=== PATIENT | female | born 1980 | race Caucasian/White ===

== ENCOUNTER 2016-09-20 22:01 | Emergency (ER) | payer OTHER ==
[~2016-09-20] VITALS: Ht 154.9 cm; Wt 68.0 kg
[~2016-09-20 22:01] MED LIST: ADVIL PM 38 MG-1 TAB PO; ALPRAZOLAM0.5 MG PO; ASACOL HD800 MG PO; BACTRIM DS 8001 TAB PO; DICYCLOMINE HCL10 MG PO; DILAUDID2 MG PO; LIALDA1.2 GM PO; METHADONE HC10 MG/ML PO; PHENERGAN25 M1 PO; PHENERGAN25 MG PR; ROWASA4 GM/60 ML RC; TYLENOL PM 5001 CAP PO; UCERIS9 MG PO; XANAX1 MG PO
--- NOTE | 2016-09-20 22:59 | ED GI/GU/ABDOMINAL COMPLAINT ---
History of Present Illness General Chief Complaint: Abdominal Pain/Flank Pain Stated Complaint: RIGHT SIDE PAIN, VOMITING PER PT Source: patient Exam Limitations: no limitations Vital Signs & Intake/Output Vital Signs & Intake/Output Vital Signs Date Time Temp Pulse Resp B/P Pulse O2 O2 Flow FiO2 Ox Delivery Rate 09/21 0416 44 18 125/75 98 Room Air 09/20 2358 97.9 64 20 126/73 99 Room Air 09/20 2207 98.1 92 18 127/86 98 Room Air ED Intake and Output 09/21 0000 09/20 1200 Intake Total Output Total Balance Patient 150 lb Weight Allergies Coded Allergies: NO KNOWN ALLERGIES (09/08/14) Triage Note: PT TO TRIAGE WITH C/O LOWER ABD AND LLQ ABD PAIN 4/10 UP TO 10/10 ON/OFF, NAUSEA, VOMITING WITH DARK RED BLOOD, DIARRHEA WITH SMALL AMOUNT OF BRIGHT RED BLOOD x4DAYS. HX OF CROHN'S DISEASE, COLITIS. Triage Nurses Notes Reviewed? yes ? n Is pt currently ? No Onset: Abrupt Duration: day(s):, constant, continues in ED Timing: recent history Quality/Severity: moderate, sharpness, severe Location: generalized abdomen Radiation: no radiation Prior Abdominal Problems: none No Modifying Factors: none HPI: 36-year-old female comes into emergency room for further evaluation of abdominal pain has been going on for the past 5 days. Pain is sharp. Patient has had associated vomiting and some bloody stool and loose stool. History of Crohn disease. Some dark red blood when she vomits she reports. Patient is not currently on any medications for her Crohn's disease. Patient has seen Dr. Gomez in the past. Patient has had no symptoms for the past year. Patient reports that she feels like her abdomen is bloated. (LETICIA MOULTON,FLORENCIA) Reconcile Medications Alprazolam 0.25 MG TABLET 1 TAB PO TID PRN ANXIETY (Reported) Budesonide (Uceris) 9 MG TABDR...ER 1 TAB PO DAILY COLON (Reported) Dicyclomine Hydrochloride (Dicyclomine HCl) 10 MG CAP 1 CAP PO TID PRN ABD CRAMPS (Reported) Mesalamine (Lialda) 1.2 GRAM TABLET.DR 1 TAB PO BID GI (Reported) Methadone Hydrochloride (Methadone HCl) 10 MG/ML RAMON 115 MG PO DAILY PAIN ( Reported) Oxycodone HCl/Acetaminophen (Percocet 5-325 MG Tablet) 5 MG-325 MG TABLET 1 TAB PO BID PRN PAIN Sulfamethoxazole/Trimethopri (Bactrim Ds 800 MG-160 MG) 1 TAB TAB 1 TAB PO BID UTI (AUBRIE ALEGRIA DO) Past History Travel History Traveled to [place] past 21 day No Medical History Any Pertinent Medical History? 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 No (FLORENCIA KASPER) Review of Systems Review of Systems Constitutional: Reports: no symptoms. EENTM: Reports: no symptoms. Respiratory: Reports: no symptoms. Cardiovascular: Reports: no symptoms. GI: Reports: see HPI. Genitourinary: Reports: no symptoms. Musculoskeletal: Reports: no symptoms. Skin: Reports: no symptoms. Neurological/Psychological: Reports: no symptoms. Hematologic/Endocrine: Reports: no symptoms. Immunologic/Allergic: Reports: no symptoms. All Other Systems: Reviewed and Negative (FLORENCIA KASPER) Physical Exam Physical Exam General Appearance: well developed/nourished, alert, awake, mild distress Head: atraumatic, normal appearance Eyes: Bilateral: normal appearance. Ears, Nose, Throat, Mouth: hearing grossly normal, moist mucous membrane Neck: normal inspection, full range of motion Respiratory: normal breath sounds, no respiratory distress Cardiovascular: regular rate/rhythm Gastrointestinal: soft, distention, tenderness Rectal: heme positive stool, NO GROSS BLOOD Back: normal inspection Extremities: normal range of motion Neurologic/Psych: awake, alert, oriented x 3, normal gait, normal mood/affect Skin: intact, normal color Core Measures ACS in differential dx? No Severe Sepsis Present: No Septic Shock Present: No (FLORENCIA KASPER) Progress Differential Diagnosis: appendicitis, biliary colic, bowel obstruction, cholecystitis, diverticulitis, ectopic , gastritis, hepatitis, hernia, ischemic bowel, inflamm bowel dis, ovarian cyst, ovarian torsion, pancreatitis, PID/cervicitis, peptic ulcer, PUD/GERD, perforated viscous, SBO, threatened AB, UTI/pyelo Plan of Care: Orders Procedure Date/time Status URINE 09/20 2258 Complete URINALYSIS 09/20 2258 Complete LIPASE 09/20 2258 Complete COMPREHENSIVE METABOLIC PANEL 09/20 2258 Complete CBC WITHOUT DIFFERENTIAL 09/20 2258 Complete AMYLASE 09/20 2258 Complete Laboratory Tests 09/21/16 0031: Urinalysis LIGHT H, Urine Color YEL, Urine Clarity HAZY H, Urine pH 6.0, Ur Specific Reading 1.020, Urine Protein NEG, Urine Ketones 15 H, Urine Nitrite NEG, Urine Bilirubin NEG, Urine Urobilinogen 0.2, Ur Leukocyte Esterase SMALL H , Ur Microscopic SEDIMENT EXAMINED, Urine RBC 5-10 H, Urine WBC 3-5 H, Ur Epithelial Cells FEW, Urine Bacteria FEW H, Urine Hemoglobin LARGE H, Urine Glucose NEG, Urine Test NEGATIVE 09/20/16 2300: Anion Gap 11, Estimated GFR > 60, BUN/Creatinine Ratio 18.8, Glucose 82, Calcium 9.7, Total Bilirubin 0.6, AST 22, ALT 31, Alkaline Phosphatase 67, Total Protein 7.9, Albumin 4.6, Globulin 3.3, Albumin/Globulin Ratio 1.4, Amylase 44, Lipase 24, CBC w Diff NO MAN DIFF REQ, RBC 4.52, MCV 85.8, MCH 28.8, RDW 13.4, MPV 8.6, Gran % 70.9, Lymphocytes % 23.8, Monocytes % 4.9, Eosinophils % 0.1, Basophils % 0.3, Absolute Granulocytes 6.8 H, Absolute Lymphocytes 2.3, Absolute Monocytes 0.5, Absolute Eosinophils 0, Absolute Basophils 0, PUBS MCHC 33.6 Diagnostic Imaging: Viewed by Me: CT Scan. Discussed w/RAD: CT Scan. Initial ED EKG: none Hand-Off Endorsed To: AUBRIE ALEGRIA DO ([facility]) Endorsed Time: 54 Pending: CT (FLORENCIA KASPER) Departure Departure Disposition: HOME OR SELF CARE Condition: Stable Clinical Impression Primary Impression: Abdominal pain Referrals: DEZ HERRERA,ANDREIA Nolen (PCP/Family) Departure Forms: Customer Survey General Discharge Information (FLORENCIA KASPER) Departure Prescriptions: Current Visit Scripts Oxycodone HCl/Acetaminophen (Percocet 5-325 MG Tablet) 1 TAB PO BID PRN PAIN #10 TAB Comments 09/21/16 3 AM Abdomen soft nontender. CT negative. The patient will follow up with GI on Thursday. She was told to return to the emergency department if worse. Dr Gomez was informed of the paln. CT BELOW PATIENT: DARON TAFOYA PRESENT AGE: 36 PATIENT ACCOUNT NO: [id number] : 82 LOCATION: [facility] ORDERING PHYSICIAN: FLORENCIA MOULTON SERVICE DATE: 09/20/16 EXAM TYPE: CAT - CT ABD & PELVIS W IV CONTRAST EXAMINATION: CT ABDOMEN AND PELVIS WITH CONTRAST CLINICAL INFORMATION: History of Crohn's disease. Abdominal distention and abdominal pain COMPARISON: CT scan abdomen pelvis 09/08/2014 TECHNIQUE: Multidetector volumetric imaging was performed of the abdomen and pelvis before and after the IV administration of 94 mL of Optiray 320 intravenous contrast. Sagittal and coronal reformatted images were obtained on the technologist's workstation. DLP: 497.91 mGy-cm FINDINGS: LUNG BASES: The visualized lung bases are unremarkable. LIVER, GALLBLADDER, AND BILIARY TREE: The liver is normal in size, shape, and attenuation. No focal hepatic lesion or biliary ductal dilatation is present. The gallbladder is unremarkable with no evidence of radiopaque gallstones, gallbladder wall thickening, or obvious pericholecystic inflammatory changes. PANCREAS: Unremarkable. SPLEEN: Unremarkable. ADRENAL GLANDS: Unremarkable. KIDNEYS AND URETERS: 5 mm nonobstructive stone in the lower pole of the left kidney. No stone in right kidney. No ureteral stone. No hydronephrosis. BLADDER: Unremarkable. GASTROINTESTINAL TRACT: The mid sigmoid bowel loop had bowel wall thickened thickening and subtle pericolonic edema on the CAT scan of 09/08/2014. No specific abnormality of this bowel loop on current study. There is no focal area of bowel wall edema or pericolonic edema. The small bowel loops are normal including the terminal ileum. No bowel obstruction. The appendix is normal. ABDOMINAL WALL: No significant hernia is appreciated. LYMPH NODES: Normal. VASCULAR: Unremarkable. PELVIC VISCERA: Uterus is retroverted. No adnexal abnormality. OSSEOUS STRUCTURES: Unremarkable. IMPRESSION: No acute abnormality CT scan abdomen pelvis. No acute change of the bowel. DICTATED BY: HOLLY AGUIRRE MD DATE/TIME DICTATED:09/21/16203 BLAST HOLE DRILLER:TEOFILO DATE/TIME TRANSCRIBED:09/21/16203 CONFIDENTIAL, DO NOT COPY WITHOUT APPROPRIATE AUTHORIZATION. <Electronically signed in Other Vendor System> SIGNED BY: HOLLY AGUIRRE MD 09/21/16216 (AUBRIE ALEGRIA DO
[2016-09-20 23:56] LABS: ABSOLUTE BASOPHIL COUNT 0 /CUMM (0.0-0.2); ABSOLUTE EOSINOPHIL COUNT 0 /CUMM (0.0-0.7); ABSOLUTE GRANULOCYTE CT 6.8 /CUMM (1.4-6.5); ABSOLUTE LYMPH COUNT 2.3 /CUMM (1.2-3.4); ABSOLUTE MONOCYTE COUNT 0.5 /CUMM (0.10-0.60); BASOPHIL % 0.3 % (0.0-2.0); EOSINOPHIL % 0.1 % (0-5); HEMATOCRIT 38.8 % (37-47); MEAN CORPUSCULAR HGB 28.8 PG (27.0-31.0); MEAN CORPUSCULAR HGB CONC 33.6 G/DL (33.0-37.0); MEAN CORPUSCULAR VOLUME 85.8 FL (81.0-99.0); MEAN PLATELET VOLUME 8.6 FL (7.4-10.4); PLATELET COUNT 377 /CUMM (130-400); RBC DISTRIBUTION WIDTH 13.4 % (11.5-14.5); RED BLOOD CELL CT 4.52 /CUMM (4.20-5.40); WHITE BLOOD CELL COUNT 9.5 /CUMM (4.8-10.8)
[2016-09-20 23:57] LABS: GRANULOCYTE % 70.9 % (42.2-75.2)
--- NOTE | 2016-09-21 02:17 | CT SCAN REPORT ---
EXAMINATION: CT ABDOMEN AND PELVIS WITH CONTRAST CLINICAL INFORMATION: History of Crohn's disease. Abdominal distention and abdominal pain COMPARISON: CT scan abdomen pelvis 09/08/2014 TECHNIQUE: Multidetector volumetric imaging was performed of the abdomen and pelvis before and after the IV administration of 94 mL of Optiray 320 intravenous contrast. Sagittal and coronal reformatted images were obtained on the technologist's workstation. DLP: 497.91 mGy-cm FINDINGS: LUNG BASES: The visualized lung bases are unremarkable. LIVER, GALLBLADDER, AND BILIARY TREE: The liver is normal in size, shape, and attenuation. No focal hepatic lesion or biliary ductal dilatation is present. The gallbladder is unremarkable with no evidence of radiopaque gallstones, gallbladder wall thickening, or obvious pericholecystic inflammatory changes. PANCREAS: Unremarkable. SPLEEN: Unremarkable. ADRENAL GLANDS: Unremarkable. KIDNEYS AND URETERS: 5 mm nonobstructive stone in the lower pole of the left kidney. No stone in right kidney. No ureteral stone. No hydronephrosis. BLADDER: Unremarkable. GASTROINTESTINAL TRACT: The mid sigmoid bowel loop had bowel wall thickened thickening and subtle pericolonic edema on the CAT scan of 09/08/2014. No specific abnormality of this bowel loop on current study. There is no focal area of bowel wall edema or pericolonic edema. The small bowel loops are normal including the terminal ileum. No bowel obstruction. The appendix is normal. ABDOMINAL WALL: No significant hernia is appreciated. LYMPH NODES: Normal. VASCULAR: Unremarkable. PELVIC VISCERA: Uterus is retroverted. No adnexal abnormality. OSSEOUS STRUCTURES: Unremarkable. IMPRESSION: No acute abnormality CT scan abdomen pelvis. No acute change of the bowel.
[2016-09-21] MEDS ORDERED: PERCOCET 5-3251 EACH PO (02:55)
[2016-09-21 04:16] VITALS: BP 125/75
== END 2016-09-21 04:16 ==
LOC: ERH 22:01
PROVIDERS: Physician Assistant Medical
DX: R10.32 Left lower quadrant pain (principal)
CPT/HCPCS: 74177; 81001; 81025; 96374; 96375; J2550